=== PATIENT | male | born 1995 | race Caucasian/White ===

== ENCOUNTER 2017-11-26 19:59 | Emergency (ER) | payer OTHER ==
--- NOTE | 2017-11-26 20:11 | EDPHY ---
H & P Stated Complaint: mental health eval Source: Patient Exam Limitations: No limitations - Personal History Current Tetanus/Diphtheria Vaccine: Unsure Current Tetanus Diphtheria and Acellular Pertussis (TDAP): Unsure - Medical/Surgical History Hx Asthma: No Hx Chronic Respiratory Disease: No Hx Diabetes: No Hx Cardiac Disease: No Hx Renal Disease: No Hx Cirrhosis: No Hx Alcoholism: No Hx HIV/AIDS: No Hx Splenectomy or Spleen Trauma: No Other PMH: concussion - Social History Smoking Status: Never smoked Time Seen by Provider: 11/26/17 20:10 HPI/ROS: CHIEF COMPLAINT: Suicidal ideation HISTORY OF PRESENT ILLNESS: The patient is referred to the emergency department by his psychiatrist for suicidal ideation. She is of the opinion the patient needs to be admitted for in-patient psychiatric hospitalization. The patient was recently diagnosed with attention deficit hyperactivity disorder and is started on Adderall. The patient reportedly recently and a long -term relationship which has precipitated suicidal thoughts. The patient reports a plan to kill himself by shooting or hanging. The patient reports he is a recreational marijuana user. He denies using alcohol in excess. He denies additional recreational drug use. REVIEW OF SYSTEMS: A comprehensive 10 point review of systems is otherwise negative aside from elements mentioned in the history of present illness. (Adam Mancia) - Physical Exam Exam: General Appearance: Alert, no distress Eyes: Pupils equal and round no pallor or injection ENT, Mouth: Mucous membranes moist Respiratory: There are no retractions, lungs are clear to auscultation Cardiovascular: Regular rate and rhythm Gastrointestinal: Abdomen is soft and nontender, no masses, bowel sounds normal Neurological: A&O, normal motor function, normal sensory exam, normal cranial nerves Skin: Warm and dry, no rashes Musculoskeletal: Neck is supple nontender Extremities: symmetrical, full range of motion Psychiatric: Endorses depression, suicidal ideation and racing thoughts. ( Adam Mancia) Constitutional: Initial Vital Signs Temperature (C) 36.9 C 11/26/17 20:00 Heart Rate 77 11/26/17 20:00 Respiratory Rate 16 11/26/17 20:00 Blood Pressure 122/81 H 11/26/17 20:00 O2 Sat (%) 95 11/26/17 20:00 O2 Delivery Mode Room Air Medical Decision Making ED Course/Re-evaluation: The patient presents to the ED with suicidal ideation. He has no acute medical complaints. I placed the patient on M1 psychiatric hold at 8:30 p.m.. Patient's urine toxicology is positive for amphetamines consistent with his Adderall use and marijuana. Remainder of the patient's laboratory studies are within normal limits. The patient has been medically cleared for psychiatric evaluation at 10:15 p.m.. Updated 11:00 p.m. I am informed the patient will be admitted for involuntary psychiatric hospitalization. Disposition is still pending. The patient will be turned over to Dr. Braun at shift change. (Adam Mancia) Differential Diagnosis: Differential diagnosis considered includes depression, suicidal ideation, bipolar mood disorder, psychosis (Adam Mancia) Other Provider: [id number] Mancia pending placement. [id number] patient has been accepted to [facility] by Dr. Corrigan. I have completed the EMT A LA. (Juan Braun) - Data Points Laboratory Results: Laboratory Results 11/26/17 20:50 11/26/17 20:50 11/26/17 11/26/17 11/26/17 20:50 20:50 20:46 WBC 5.92 10^3/uL 10^3/uL (3.80-9.50) RBC 5.08 10^6/uL 10^6/uL (4.40-6.38) Hgb 15.6 g/dL g/dL (13.7-17.5) Hct 44.0 % % (40.0-51.0) MCV 86.6 fL fL (81.5-99.8) MCH 30.7 pg pg (27.9-34.1) MCHC 35.5 g/dL g/dL (32.4-36.7) RDW 11.9 % % (11.5-15.2) Plt Count 222 10^3/uL 10^3/uL (150-400) MPV 10.6 fL fL (8.7-11.7) Neut % (Auto) 62.3 % % (39.3-74.2) Lymph % (Auto) 27.5 % % (15.0-45.0) [place] % (Auto) 8.3 % % (4.5-13.0) Eos % (Auto) 1.5 % % (0.6-7.6) Baso % (Auto) 0.2 % L % (0.3-1.7) Nucleat RBC Rel Count 0.0 % % (0.0-0.2) Absolute Neuts (auto) 3.69 10^3/uL 10^3/uL (1.70-6.50) Absolute Lymphs (auto) 1.63 10^3/uL 10^3/uL (1.00-3.00) Absolute Monos (auto) 0.49 10^3/uL 10^3/uL (0.30-0.80) Absolute Eos (auto) 0.09 10^3/uL 10^3/uL (0.03-0.40) Absolute Basos (auto) 0.01 10^3/uL L 10^3/uL (0.02-0.10) Absolute Nucleated RBC 0.00 10^3/uL 10^3/uL (0-0.01) Immature Gran % 0.2 % % (0.0-1.1) Immature Gran # 0.01 10^3/uL 10^3/uL (0.00-0.10) Sodium 141 mEq/L mEq/L (135-145) Potassium 3.9 mEq/L mEq/L (3.3-5.0) Chloride 104 mEq/L mEq/L (97-110) Carbon Dioxide 25 mEq/l mEq/l (22-31) Anion Gap 12 mEq/L mEq/L (8-16) BUN 11 mg/dL mg/dL (7-23) Creatinine 1.0 mg/dL mg/dL (0.7-1.3) Estimated GFR > 60 Glucose 105 mg/dL H mg/dL (70-100) Calcium 9.4 mg/dL mg/dL (8.5-10.4) Urine Opiates Screen NEGATIVE (NEGATIVE) Urine Barbiturates NEGATIVE (NEGATIVE) Ur Phencyclidine Scrn NEGATIVE (NEGATIVE) Ur Amphetamine Screen NON-NEGATIVE H (NEGATIVE) U Benzodiazepines Scrn NEGATIVE (NEGATIVE) Urine Cocaine Screen NEGATIVE (NEGATIVE) U Marijuana (THC) Screen NON-NEGATIVE H (NEGATIVE) Ethyl Alcohol < 10 mg/dL mg/dL (0-10) Departure - Departure Disposition: Other Psych, Not [place] Clinical Impression: Suicidal ideation Condition: Fair Referrals: NONE *PRIMARY CARE P,. [Primary Care Provider] - As per Instructions
[2017-11-26 21:07] LABS: PLATELET COUNT 222 10^3/uL (150-400)
--- NOTE | 2017-11-26 23:51 | ASMTLCPROG ---
Notes Note: Notes: Clinicals faxed at 23:30 to: Nadira Carpenter [facility]END[facility] SALE TO [facility] [phone] or [phone] [facility] [phone] Date Signed: 11/26/2017 11:50 PM Electronically Signed By:Palma Booker
[2017-11-27 04:05] VITALS: BP 118/67
== END 2017-11-27 04:06 ==
PROC: GZ11ZZZ Psychological Tests, Personality and Behavioral (ICD-10-PCS; principal; 2017-11-26)
DX: R45.851 Suicidal ideations (principal)
CPT/HCPCS: 80305; G0480